=== PATIENT | female | born 1950 | race Caucasian/White ===

== ENCOUNTER 2024-07-10 06:21 | Day surgery (SDC) | payer OTHER ==
--- NOTE | 2024-07-09 08:49 | RAD REPORT ---
EXAM DESCRIPTION: RAD - Chest Pa And Lat (2 Views) - 07/09/2024 8:38 am CLINICAL HISTORY: pre opfor surgery Chest pain. COMPARISON: No comparisons TECHNIQUE: PA and lateral views of the chest were obtained. FINDINGS: The lungs are hyperexpanded compatible with COPD. The heart is upper limit of normal in si ze. No fracture or aggressive bony process. IMPRESSION: COPD without acute process identified. The USPSTF recommends annual screening for lung cancer with low-dose CT (LDCT) in adults aged 50 to 80 years who have a 20 pack-year smoking history and currently smoke or have quit within the past 15 years.
[2024-07-09 08:50] LABS: Absolute Basophils 0.1 K/uL (0-0.5); Absolute Eosinophils 0.2 K/uL (0-0.5); Absolute Lymphocytes (CBC) 1.8 K/uL (0.7-4.9); Absolute Monocytes 0.9 K/uL (0.1-1.3); Absolute Neutrophil 4.7 K/uL (1.8-8.0); Eosinophils % 2.6 % (0-4.4); Hematocrit 44.6 % (36.0-45.0); Hemoglobin 14.4 g/dL (12.0-15.0); Lymphocytes % 23.5 % (15.3-44.8); MCH 30.5 pg (27.0-35.0); MCHC 32.3 g/dL (32.0-36.0); MCV 94.7 fL (80-100); MPV 7.6 fL (7.6-11.3); Monocytes % 11.8 % (3.3-12.3); Neutrophils % 61.1 % (41.7-73.7); Platelets 325 thou/uL (152-406); RBC Red Blood Cell Count 4.71 M/uL (3.86-4.86); Red Cell Distribution Width 13.2 % (12.1-15.2)
[2024-07-09 09:05] LABS: Anion Gap 6.9 mEq/L (5.0-15.0); Potassium 3.9 mEq/L (3.5-5.1)
--- NOTE | 2024-07-09 17:44 | EKG ---
Test Date: 2024-07-09 Test Time: 08:27:07 Eviscerator: SHIVAM MEASUREMENT RESULTS: Intervals: Rate: 76 OK: 148 QRSD: 78 QT: 390 QTc: 438 [place]: P: 54 OK: 148 QRS: 48 T: 61 INTERPRETIVE STATEMENTS: Normal sinus rhythm Nonspecific T wave abnormality Abnormal ECG No previous ECG available for comparison Electronically Signed On 07-09-24 17:43:58 CDT by Omar La
[2024-07-10] MEDS ORDERED: LIDOCAINE 2% MPF 5 ML VIAL ONE (06:37)
[2024-07-10] MEDS ORDERED: FENTANYL CITR 100 MCG/2 ML ONE (06:37)
[2024-07-10] MEDS ORDERED: ONDANSETRON 4 MG/2 ML VIAL ONE (06:37)
[2024-07-10] MEDS ORDERED: propofoL 200 MG/20 ML VIAL IV ONE (06:37)
[2024-07-10] MEDS: Ringers Lactate 1,000 ML IV ONE ×2 (06:50→08:30)
[2024-07-10] MEDS: CEFAZOLIN SODIUM 2 GM/VIAL ONE (07:33)
[2024-07-10] MEDS ORDERED: MIDAZOLAM HCL 2 MG/2 ML INJ ONE (07:39)
[2024-07-10] MEDS: BUPIVACAINE 0.5% PF 10 ML VIAL ONE (08:01)
[2024-07-10] MEDS ORDERED: KETOROLAC 30 MG/ML INJ ONE (08:27)
[2024-07-10] MEDS ORDERED: dexAMETHasone 10 MG/ML VIAL ONE (08:27)
--- NOTE | 2024-07-10 08:31 | P.OP ---
Date of Service: 07/10/24 Preop diagnosis: Infected sebaceous cyst left axilla Postop diagnosis: Same Procedure performed: Wide excision 2 weeks infected sebaceous cyst left axilla 6 x 3 cm with layered closure Surgeon: Alfredito Zayas MD Operations And Maintenance Technician: Susan ZHANG Estimated blood loss: Minimal Specimen: Pus for culture and sensitivity and cyst Findings: As above Anesthesia: General Complications: None Drains: [place] quarter-inch Fluids and blood products: Nonapplicable Disposition: Recovery room Operative note: Patient brought to the OR placed in the supine position. General anesthesia begun. Patient prepped and draped in the usual sterile fashion. Marcaine 0.5 infiltrated for postop pain control. 15 blade used to make a 6 x 3 cm incision to excise this entire infected cyst. Subcutaneous tissue divided and entire cyst excised down to the deep subcutaneous tissue. There was pus encountered. Cultures were taken. The wound was thoroughly irrigated until clear effluent. Bleeding was controlled with cautery. Quarter inch Claribel drain was placed and secured with 3-0 nylon. 2-0 chromic and 3-0 chromic used used to close the subcutaneous tissue. 4-0 nylon was used to loosely close the skin. Sterile dressing applied. Patient awakened and taken to recovery room in good general condition. CC: Dr. Morgan's office
[2024-07-10] MEDS: HYDROMORPHONE HCL 1 MG/ML INJ ONE (08:55)
[2024-07-10] MEDS ORDERED: HYDROCODONE/APAP 7.5/325 MG TAB ONE (09:27)
[2024-07-10] MEDS: HYDROCODONE/APAP 7.5/325 MG TAB PO PRN (09:28)
[2024-07-10 10:12] VITALS: BP 140/80; TEMP 97.3; O2SAT 98
== END 2024-07-10 10:08 | disposition home or self-care (01) ==
LOC: OR 06:21
PROVIDERS: ATTEND Surgery
PROC: 0JBF0ZZ Excision of Left Upper Arm Subcutaneous Tissue and Fascia, Open Approach (ICD-10-PCS; principal; 2024-07-10 07:30)
DX: L72.0 Epidermal cyst (principal)
CPT/HCPCS: 93005; 87070; 85025; 80048; 36415; 87205; 88304; 87075; 71046; 11406; J2704; J2001; J2250; J3010; J1100; J1170; J2405; J7120 ×2